=== PATIENT | female | born 1945 | race Caucasian/White ===

== ENCOUNTER 2019-02-19 16:52 | Inpatient (IN) ==
[2019-02-19] MEDS ORDERED: ALBUTEROL/IPRATROPIUM 3 ML NEB RESP TX STA (17:27)
[2019-02-19] MEDS ORDERED: SODIUM CHLORIDE 0.9% 500 ML IV STA (17:27)
[2019-02-19] MEDS ORDERED: ONDANSETRON 4 MG/2 ML VIAL IV STA (17:27)
[2019-02-19] MEDS ORDERED: cefTRIAXone 1,000 MG in SODIUM CHLORIDE 0.9% 100 ML IV STA (17:27)
[2019-02-19] MEDS ORDERED: methylPREDNISolone SOD SUC 125 MG/2 ML VIAL IV STA (17:27)
[2019-02-19 18:10] LABS: Basophils % 0.5 % (0.0-0.8); Eosinophils # 0.1 10*3/uL (0.0-0.87); Eosinophils % 1.7 % (0.00-10.9); Hematocrit 43.8 VOL% (35.7-47.0); Hemoglobin 14.2 GM/DL (12.0-16.0); Immature Granulocytes % 0.4 %; Immature Granulocytes Absolute 0.03 #; Lymphocytes # 1.7 10*3/uL (1.4-4.0); Lymphocytes % 21.2 % (21.3-54.2); Mean Corpuscular HGB Conc 32.4 GM/DL (32-36); Mean Corpuscular Hemoglobin 31 PG (27-34); Mean Corpuscular Volume 95.8 FL (87-102); Mean Platelet Volume 10.3 FL (9.6-12.0); Monocytes # 0.6 10*3/uL (0.11-0.8); Monocytes % 7.6 % (1.7-12.7); Neutrophils # 5.6 10*3/uL (1.4-7.4); Neutrophils % 68.6 % (38.7-73.9); Platelet Count 173 T/CUMM (130-400); Red Blood Count 4.57 MC/CUMM (3.8-5.5); Red Cell Distribution Width 12.6 % (9.3-17.3); White Blood Count 8.1 T/CUMM (4-12)
[2019-02-19 18:28] LABS: INR 0.9; PT Patient Result 9.7 SECS
[2019-02-19 18:42] LABS: Albumin 3.8 G/DL (3.4-5.0); Bilirubin,Total 0.4 MG/DL (0.2-1.0); Calcium 9.5 MG/DL (8.5-10.1); Osmolality,Calculated 279.7 MOS/KG (273-304); Potassium 4.2 MMOL/L (3.5-5.1); Total Protein 8.5 G/DL (6.4-8.3)
[2019-02-19] MEDS ORDERED: DIGOXIN 0.5 MG/2 ML AMP IV STA (19:51)
[2019-02-19 20:17] LABS: Apearance,Urine CLEAR (Clear); Bilirubin,Urine Negative (Negative); Blood, Urine Negative (Negative); Glucose,Urine (UA) Negative (Negative); Ketones,Urine Negative (Negative); Mucus,Urine Occasional /LPF (Occasional); Nitrite,Urine Negative (Negative); Protein,Urine Negative; RBC,Urine 2 /HPF (0-4); Squamous Epithelial Cell,Urine Occasional /HPF (0-10); Urine Color Yellow (Yellow); Urine Specific Gravity 1.023 (1.001-1.035); Urine Urobilinogen < 2.0 EU/DL (0.2-1.0); WBC,Urine 1 /HPF (0-6)
[2019-02-19] MEDS ORDERED: SODIUM CHLORIDE 0.9% 1,000 ML IV SCH (22:37)
[2019-02-19] MEDS ORDERED: ONDANSETRON 4 MG/2 ML VIAL IV PRN (22:37)
[2019-02-19] MEDS ORDERED: ACETAMINOPHEN 325 MG TABLET PO PRN (22:37)
[2019-02-19] MEDS ORDERED: ALBUTEROL/IPRATROPIUM 3 ML NEB RESP TX PRN (22:37)
[2019-02-19] MEDS: MAGNESIUM CHLORIDE 64 MG TABLET PO SCH (23:43)
[2019-02-19] MEDS: APIXABAN 5 MG TABLET PO SCH (23:43)
[2019-02-19] MEDS: SOTALOL 80 MG TABLET PO SCH (23:43)
[2019-02-20] MEDS: ALBUTEROL/IPRATROPIUM 3 ML NEB RESP TX SCH ×4 (00:21→19:54)
[2019-02-20 04:47] LABS: Basophils % 0.2 % (0.0-0.8); Hematocrit 39.4 VOL% (35.7-47.0); Hemoglobin 12.5 GM/DL (12.0-16.0); Immature Granulocytes % 0.5 %; Immature Granulocytes Absolute 0.03 #; Lymphocytes # 0.8 10*3/uL (1.4-4.0); Lymphocytes % 12.1 % (21.3-54.2); Mean Corpuscular HGB Conc 31.7 GM/DL (32-36); Mean Corpuscular Hemoglobin 31 PG (27-34); Mean Corpuscular Volume 96.1 FL (87-102); Mean Platelet Volume 10.8 FL (9.6-12.0); Monocytes # 0.1 10*3/uL (0.11-0.8); Monocytes % 1.3 % (1.7-12.7); Neutrophils # 5.5 10*3/uL (1.4-7.4); Neutrophils % 85.9 % (38.7-73.9); Platelet Count 145 T/CUMM (130-400); Red Cell Distribution Width 12.4 % (9.3-17.3); White Blood Count 6.4 T/CUMM (4-12)
[2019-02-20 05:07] LABS: Blood Urea Nitrogen 21 MG/DL (7-18); Glucose 184 MG/DL (74-106); Osmolality,Calculated 288.3 MOS/KG (273-304); Potassium 4.3 MMOL/L (3.5-5.1); Sodium 141 MMOL/L (136-145); Troponin I < 0.015 NG/ML (0.00-0.045)
[2019-02-20] MEDS: methylPREDNISolone SOD SUC 40 MG/1 ML VIAL IV SCH ×2 (08:30→20:58)
[2019-02-20] MEDS: APIXABAN 5 MG TABLET PO SCH ×2 (08:31→20:58)
[2019-02-20] MEDS: CHOLECALCIFEROL 5,000 UNIT TABLET PO SCH (08:31)
[2019-02-20] MEDS: LOSARTAN 50 MG TABLET PO SCH (08:31)
[2019-02-20] MEDS: PANTOPRAZOLE 40 MG TABLET PO SCH (08:31)
[2019-02-20] MEDS: MAGNESIUM CHLORIDE 64 MG TABLET PO SCH ×4 (08:31→20:58)
[2019-02-20] MEDS: SOTALOL 80 MG TABLET PO SCH ×3 (08:32→20:57)
[2019-02-20] MEDS: ASCORBIC ACID 500 MG TABLET PO SCH (08:32)
[2019-02-20] MEDS: BENZONATATE 100 MG CAPSULE PO SCH ×3 (09:19→20:58)
[2019-02-20] MEDS: FUROSEMIDE 40 MG TABLET PO SCH (16:21)
[2019-02-20] MEDS: cefTRIAXone 1,000 MG in SYRINGE 1 EACH IV SCH (16:21)
[2019-02-20] MEDS: ESCITALOPRAM 10 MG TABLET PO SCH (20:58)
[2019-02-21] MEDS: ALBUTEROL/IPRATROPIUM 3 ML NEB RESP TX SCH ×4 (01:32→19:05)
[2019-02-21 04:56] LABS: Basophils % 0.2 % (0.0-0.8); Hematocrit 39.7 VOL% (35.7-47.0); Hemoglobin 12.9 GM/DL (12.0-16.0); Immature Granulocytes % 0.6 %; Immature Granulocytes Absolute 0.08 #; Lymphocytes # 0.8 10*3/uL (1.4-4.0); Lymphocytes % 5.9 % (21.3-54.2); Mean Corpuscular HGB Conc 32.5 GM/DL (32-36); Mean Corpuscular Hemoglobin 31 PG (27-34); Mean Corpuscular Volume 95.2 FL (87-102); Mean Platelet Volume 11.2 FL (9.6-12.0); Monocytes # 0.3 10*3/uL (0.11-0.8); Neutrophils # 11.7 10*3/uL (1.4-7.4); Neutrophils % 91.3 % (38.7-73.9); Platelet Count 157 T/CUMM (130-400); Red Blood Count 4.17 MC/CUMM (3.8-5.5); Red Cell Distribution Width 12.4 % (9.3-17.3); White Blood Count 12.8 T/CUMM (4-12)
[2019-02-21 04:57] LABS: Calcium 9.6 MG/DL (8.5-10.1); Osmolality,Calculated 285.5 MOS/KG (273-304); Potassium 4.2 MMOL/L (3.5-5.1)
[2019-02-21 05:21] LABS: Lymphocytes 4 % (20-55); Metamyelocytes 1 %; Platelet Estimate Decreased; Polychromasia Few; Segmented Neutrophils 94 % (50-85); Total Cells Counted 100
[2019-02-21] MEDS: PANTOPRAZOLE 40 MG TABLET PO SCH (08:53)
[2019-02-21] MEDS: BENZONATATE 100 MG CAPSULE PO SCH ×3 (08:53→22:27)
[2019-02-21] MEDS: ASCORBIC ACID 500 MG TABLET PO SCH (08:53)
[2019-02-21] MEDS: CHOLECALCIFEROL 5,000 UNIT TABLET PO SCH (08:54)
[2019-02-21] MEDS: LOSARTAN 50 MG TABLET PO SCH (08:54)
[2019-02-21] MEDS: MAGNESIUM CHLORIDE 64 MG TABLET PO SCH ×4 (08:54→22:27)
[2019-02-21] MEDS: methylPREDNISolone SOD SUC 40 MG/1 ML VIAL IV SCH ×2 (08:55→22:28)
[2019-02-21] MEDS: APIXABAN 5 MG TABLET PO SCH ×2 (08:55→22:26)
[2019-02-21] MEDS: FUROSEMIDE 40 MG TABLET PO SCH ×2 (08:55→17:17)
[2019-02-21] MEDS: SOTALOL 80 MG TABLET PO SCH ×2 (08:56→22:25)
[2019-02-21] MEDS: cefTRIAXone 1,000 MG in SYRINGE 1 EACH IV SCH (17:17)
[2019-02-21] MEDS: ESCITALOPRAM 10 MG TABLET PO SCH (22:27)
[2019-02-22] MEDS: ALBUTEROL/IPRATROPIUM 3 ML NEB RESP TX SCH ×2 (00:33→08:20)
[2019-02-22 05:27] LABS: Basophils % 0.2 % (0.0-0.8); Hematocrit 42.9 VOL% (35.7-47.0); Hemoglobin 13.6 GM/DL (12.0-16.0); Immature Granulocytes % 0.8 %; Immature Granulocytes Absolute 0.09 #; Lymphocytes # 0.8 10*3/uL (1.4-4.0); Lymphocytes % 6.6 % (21.3-54.2); Mean Corpuscular HGB Conc 31.7 GM/DL (32-36); Mean Corpuscular Hemoglobin 31 PG (27-34); Mean Corpuscular Volume 96.2 FL (87-102); Mean Platelet Volume 10.7 FL (9.6-12.0); Monocytes # 0.2 10*3/uL (0.11-0.8); Monocytes % 1.3 % (1.7-12.7); Neutrophils # 10.3 10*3/uL (1.4-7.4); Neutrophils % 91.1 % (38.7-73.9); Platelet Count 159 T/CUMM (130-400); Red Blood Count 4.46 MC/CUMM (3.8-5.5); Red Cell Distribution Width 12.5 % (9.3-17.3); White Blood Count 11.3 T/CUMM (4-12)
[2019-02-22 05:34] LABS: Calcium 9.8 MG/DL (8.5-10.1); Osmolality,Calculated 284.7 MOS/KG (273-304); Potassium 4.1 MMOL/L (3.5-5.1)
[2019-02-22 05:49] LABS: Lymphocytes 11 % (20-55); Segmented Neutrophils 88 % (50-85); Total Cells Counted 100
[2019-02-22 07:58] VITALS: BP 153/70
[2019-02-22] MEDS: BENZONATATE 100 MG CAPSULE PO SCH (08:21)
[2019-02-22] MEDS: CHOLECALCIFEROL 5,000 UNIT TABLET PO SCH (08:21)
[2019-02-22] MEDS: ASCORBIC ACID 500 MG TABLET PO SCH (08:22)
[2019-02-22] MEDS: MAGNESIUM CHLORIDE 64 MG TABLET PO SCH (08:24)
[2019-02-22] MEDS: LOSARTAN 50 MG TABLET PO SCH (08:24)
[2019-02-22] MEDS: APIXABAN 5 MG TABLET PO SCH (08:25)
[2019-02-22] MEDS: FUROSEMIDE 40 MG TABLET PO SCH (08:25)
[2019-02-22] MEDS: SOTALOL 80 MG TABLET PO SCH (08:25)
[2019-02-22] MEDS: PANTOPRAZOLE 40 MG TABLET PO SCH (08:26)
[2019-02-22] MEDS: methylPREDNISolone SOD SUC 40 MG/1 ML VIAL IV SCH (08:26)
== END 2019-02-22 11:47 | disposition home or self-care (01) | DRG 202 ==
LOC: N.ED 16:52 → SUATTDRO 19:03 → N.EDINP 19:03 → N.TELEN 19:58
PROVIDERS: ADMIT Internal Medicine; ATTEND Hospitalist